=== PATIENT | male | born 1960 | race Caucasian/White ===

== ENCOUNTER 2016-11-20 13:00 | Emergency (ER) | payer OTHER ==
[~2016-11-20] VITALS: Ht 160 cm; Wt 155.0 kg
[~2016-11-20 13:00] MED LIST: /AUGM875TA OR; ACET65TA OR; ASPI81TA3 OR; BACT800T OR; CLIN300C OR; COLA100C2 OR; GLUC1000 PO; LISI2.5T PO; NAPR250T OR; PERC7.5T8 OR; SENN8.6T14 OR; ZOCO40TA OR
[2016-11-20] MEDS ORDERED: FURO20TA2 PO (13:18)
[2016-11-20] MEDS ORDERED: INVO300T PO (13:18)
[2016-11-20] MEDS ORDERED: PROZ20CA11 PO (13:18)
[2016-11-20 15:00] LABS: BASO # 0.1 10^3/uL (0.0-0.2); BASO % 0.7 % (0.0-1.0); EOS # 0.3 10^3/uL (0.0-0.50); EOS % 2.9 % (0.0-3.0); IMMATURE GRANULOCYTE % 0.6 % (0-0); LYMPH # 1.3 10^3/uL (1.5-4.5); LYMPH % 11.1 % (24.0-44.0); MEAN CORPUSCULAR HEMOGLOBIN 28.7 pg (27.0-33.0); MEAN CORPUSCULAR HGB CONC 32.8 g/dl (32.0-36.5); MEAN CORPUSCULAR VOLUME 87.6 fl (80.0-96.0); MONO # 0.9 10^3/uL (0.0-0.8); MONO % 7.4 % (0.0-5.0); NEUTROPHILS # 8.9 10^3/uL (1.8-7.7); NEUTROPHILS % 77.3 % (36.0-66.0); PLATELET COUNT, AUTOMATED 221 10^3/uL (150-450); RED CELL DISTRIBUTION WIDTH 13.6 % (11.5-14.5); WHITE BLOOD COUNT 11.5 10^3/uL (4.0-10.0)
[2016-11-20 15:03] LABS: ADD MORPHOLOGY? NO
[2016-11-20 15:15] LABS: ALBUMIN 3.4 GM/DL (3.2-5.2); ALBUMIN/GLOBULIN RATIO 0.79 (1.00-1.93); ALKALINE PHOSPHATASE 36 U/L (45-117); ALT/SGPT 23 U/L (12-78); ANION GAP 9 MEQ/L (8-16); AST/SGOT 15 U/L (15-37); BILIRUBIN,TOTAL 0.7 MG/DL (0.2-1.0); BLOOD UREA NITROGEN 16 MG/DL (7-18); CALCIUM LEVEL 8.6 MG/DL (8.5-10.1); CARBON DIOXIDE LEVEL 22 MEQ/L (21-32); CHLORIDE LEVEL 107 MEQ/L (98-107); CREATININE FOR GFR 0.62 MG/DL (0.70-1.30); GLOMERULAR FILTRATION RATE > 60.0 (>56); GLUCOSE, FASTING 173 MG/DL (70-105); POTASSIUM SERUM 4.2 MEQ/L (3.5-5.1); SODIUM LEVEL 138 MEQ/L (136-145); T UPTAKE 32 % (33-40); THYROXINE (T4) 10.1 UG/DL (4.5-12.0); TOTAL PROTEIN 7.7 GM/DL (6.4-8.2)
[2016-11-20 16:25] VITALS: BP 142/85
== END 2016-11-20 16:28 | disposition home or self-care (01) ==
LOC: M ED 13:00
DX: F33.1 Major depressive disorder, recurrent, moderate (principal); F43.20 Adjustment disorder, unspecified; E11.9 Type 2 diabetes mellitus without complications; I10 Essential (primary) hypertension; E78.00 Pure hypercholesterolemia, unspecified; Z79.899 Other long term (current) drug therapy; Z98.2 Presence of cerebrospinal fluid drainage device; Z79.84 Long term (current) use of oral hypoglycemic drugs

== ENCOUNTER → 2017-01-26 | Outpatient (REF) | payer OTHER ==
[~2017-01-26] MED LIST changes: +FURO20TA2 PO; +INVO300T PO; +PROZ20CA11 PO
[2017-01-26 18:33] LABS: MEAN CORPUSCULAR HEMOGLOBIN 29.1 pg (27.0-33.0); MEAN CORPUSCULAR HGB CONC 32.5 g/dl (32.0-36.5); MEAN CORPUSCULAR VOLUME 89.3 fl (80.0-96.0); PLATELET COUNT, AUTOMATED 225 10^3/uL (150-450); RED CELL DISTRIBUTION WIDTH 13.4 % (11.5-14.5); WHITE BLOOD COUNT 9.6 10^3/uL (4.0-10.0)
[2017-01-26 18:49] LABS: ALBUMIN 3.4 GM/DL (3.2-5.2); ALBUMIN/GLOBULIN RATIO 0.81 (1.00-1.93); ALKALINE PHOSPHATASE 32 U/L (45-117); ALT/SGPT 18 U/L (12-78); ANION GAP 7 MEQ/L (8-16); AST/SGOT 7 U/L (7-37); BILIRUBIN,TOTAL 0.8 MG/DL (0.2-1.0); BLOOD UREA NITROGEN 19 MG/DL (7-18); CALCIUM LEVEL 8.5 MG/DL (8.5-10.1); CARBON DIOXIDE LEVEL 26 MEQ/L (21-32); CHLORIDE LEVEL 104 MEQ/L (98-107); CHOLESTEROL LEVEL 141 MG/DL (<200); CREATININE FOR GFR 0.63 MG/DL (0.70-1.30); GLOMERULAR FILTRATION RATE > 60.0 (>56); GLUCOSE, FASTING 193 MG/DL (70-105); POTASSIUM SERUM 4.3 MEQ/L (3.5-5.1); SODIUM LEVEL 137 MEQ/L (136-145); TOTAL PROTEIN 7.6 GM/DL (6.4-8.2); TRIGLYCERIDES LEVEL 80 MG/DL (<150)
== END ==
LOC: M SFHCCLAY 09:21
PROVIDERS: ATTEND Nurse Practitioner Family
DX: E55.9 Vitamin D deficiency, unspecified (principal); I10 Essential (primary) hypertension; E11.8 Type 2 diabetes mellitus with unspecified complications

== ENCOUNTER → 2017-04-20 | Outpatient (REF) | payer OTHER ==
[2017-04-21 12:09] LABS: ESTIMATED AVERAGE GLUCOSE 212 MG/DL (60-110)
[2017-04-21 12:15] LABS: TOTAL 25(OH) VITAMIN D 15.1 NG/ML (30.0-100.0)
== END ==
LOC: M SFHCCLAY 14:39
DX: E11.8 Type 2 diabetes mellitus with unspecified complications (principal); E55.9 Vitamin D deficiency, unspecified

== ENCOUNTER → 2019-02-09 | Outpatient (REF) | payer OTHER ==
[2019-02-09 16:47] LABS: BASO # 0.1 10^3/uL (0.0-0.2); BASO % 0.7 % (0.0-1.0); EOS # 0.4 10^3/uL (0.0-0.5); EOS % 4.7 % (0.0-3.0); HEMATOCRIT 44.4 % (42.0-52.0); HEMOGLOBIN 14.6 g/dl (13.5-17.5); MEAN CORPUSCULAR HEMOGLOBIN 29.5 pg (27.0-33.0); MEAN CORPUSCULAR HGB CONC 32.9 g/dl (32.0-36.5); MEAN CORPUSCULAR VOLUME 89.7 fl (80.0-96.0); MONO # 0.7 10^3/uL (0.0-0.8); MONO % 8.1 % (0.0-5.0); NEUTROPHILS # 5.4 10^3/uL (1.5-8.5); NEUTROPHILS % 62.8 % (36.0-66.0); PLATELET COUNT, AUTOMATED 229 10^3/uL (150-450); RED BLOOD COUNT 4.95 10^6/uL (4.30-6.10); WHITE BLOOD COUNT 8.7 10^3/uL (4.0-10.0)
[2019-02-09 16:56] LABS: ALBUMIN 3.5 GM/DL (3.2-5.2); ALT/SGPT 21 U/L (12-78); BILIRUBIN,TOTAL 0.6 MG/DL (0.2-1.0); BLOOD UREA NITROGEN 14 MG/DL (7-18); CALCIUM LEVEL 8.9 MG/DL (8.5-10.1); CARBON DIOXIDE LEVEL 30 MEQ/L (21-32); CHLORIDE LEVEL 103 MEQ/L (98-107); CHOLESTEROL LEVEL 135 MG/DL (<200); CHOLESTEROL RISK RATIO 3.292 (<5); CREATININE FOR GFR 0.71 MG/DL (0.70-1.30); GLOMERULAR FILTRATION RATE > 60.0 (>56); GLUCOSE, FASTING 319 MG/DL (70-100); HDL CHOLESTEROL 41 MG/DL (>40); LDL CHOLESTEROL 76 MG/DL (<100); NON-HDL-C 94 MG/DL; POTASSIUM SERUM 4.5 MEQ/L (3.5-5.1); SODIUM LEVEL 136 MEQ/L (136-145); TOTAL PROTEIN 7.3 GM/DL (6.4-8.2); TRIGLYCERIDES LEVEL 88 MG/DL (<150)
[2019-02-09 17:20] LABS: CREATININE, URINE 44.5 MG/DL; MALB URINE SIEMENS 7.9 MG/L; MAU/CREAT RATIO 17.7 MCG/MG (0.0-30.0)
== END ==
LOC: M SFHCLERA 10:12
PROVIDERS: ATTEND Family Medicine
DX: E11.9 Type 2 diabetes mellitus without complications (principal)

== ENCOUNTER → 2019-04-25 | Outpatient (REF) | payer OTHER ==
[2019-04-25 18:20] LABS: CHOLESTEROL RISK RATIO 3.1 (<5)
== END ==
LOC: M SFHCCLAY 13:26
PROVIDERS: ATTEND Family Medicine
DX: E11.8 Type 2 diabetes mellitus with unspecified complications (principal)

== ENCOUNTER → 2020-01-17 | Outpatient (REF) | payer OTHER ==
[2020-01-17 16:29] LABS: HEMOGLOBIN A1c 5.2 %
[2020-01-17 16:39] LABS: CREATININE, URINE 27.8 MG/DL; CREATININE,RANDOM URINE 27.8 MG/DL; MALB URINE SIEMENS < 5.0 MG/L; MAU/CREAT RATIO 17.9 MCG/MG (0.0-30.0)
== END ==
LOC: M SFHCLERA 14:08
PROVIDERS: ATTEND Student in an Organized Health Care Education/Training Program
DX: E11.9 Type 2 diabetes mellitus without complications (principal)

== ENCOUNTER → 2020-03-13 | Outpatient (CLI) | payer OTHER ==
[~2020-03-13] MED LIST changes: +ASPI81TA26 PO; +LISI-898 PO; +METF10004 PO; +SERT-138 PO; +TRUL0.5I SC
--- NOTE | 2020-03-13 11:41 | REP ---
INDICATION: VENOUS INSUFFICIENCY, VARICOSE VEINS COMPARISON: None. TECHNIQUE: Real time compression and duplex Doppler interrogation of the bilateral lower extremity deep venous system is performed. FINDINGS: Bilaterally, the common femoral, superficial femoral and popliteal veins are fully compressible with transducer pressure and demonstrate normal spontaneous and phasic flow, without evidence of deep venous thrombosis. Evaluation for venous reflux is performed. There is reflux in the right common femoral vein only in the standing position with duration of 2 seconds. There is no reflux in the superficial femoral or popliteal veins. There is an anterior greater saphenous vein present with no reflux. There is no reflux in any portion of the greater saphenous vein which measures 5 mm at the saphenofemoral junction and 7 mm more distally. There are multiple collateral venous structures communicating with the greater saphenous vein. There is reflux in the lesser saphenous vein with duration of 5 seconds only in the standing position, diameter 5 mm. There is minimal reflux in the left common femoral vein both with the bed tilted and in the standing position, duration 1.9 seconds. There is an anterior accessory greater saphenous vein present without reflux. There is reflux in the greater saphenous vein at the saphenofemoral junction with a duration of 1.8 seconds with the bed tilted, AP diameter 12 mm. There is no reflux in the more distal aspect of the greater saphenous vein which measures 3 mm. There is no reflux in the superficial femoral or popliteal veins. There is no reflux in the lesser saphenous vein which measures 4 mm. Collateral venous structures are seen communicating with the greater saphenous vein. IMPRESSION: No evidence of deep venous thrombosis of the bilateral lower extremity femoral popliteal venous system. Bilateral venous reflux as discussed in detail above. <Electronically signed by Ricki Santos > 03/13/20 [id number]
== END ==
LOC: M RAD 10:11
PROVIDERS: ATTEND Physician Assistant
DX: I87.2 Venous insufficiency (chronic) (peripheral) (principal); I83.813 Varicose veins of bilateral lower extremities with pain; I83.891 Varicose veins of right lower extremity with other complications

== ENCOUNTER → 2020-03-18 | Outpatient (CLI) | payer OTHER | LOC: M LABSMTC 09:34 | PROVIDERS: ATTEND Anesthesiology | DX: Z01.812 Encounter for preprocedural laboratory examination (principal); Z20.822 Contact with and (suspected) exposure to COVID-19 ==

== ENCOUNTER 2020-03-23 06:48 | Day surgery (SDC) | payer OTHER ==
[~2020-03-23] VITALS: Ht 160 cm; Wt 100.2 kg
[~2020-03-23 06:48] MED LIST changes: +LISI-542 PO; -LISI-898 PO; +NS 1,000 ML IV ONE
--- OUTSIDE RECORDS SUMMARY | 2020-03-23 06:52 | CCD | Continuity of Care Document ---
Author Author [facility] Organization Unknown Address [address], [address] [place] [address] Phone [phone] Care Team Providers Care District Commercial Superintendent Name Role Phone Elizabeth Jarvis M.D. AUTM [phone] AUTM Unavailable Problems Active Problems Provider Date Essential hypertension Khanh Estrada, Onset: 2019 Social History Type Date Description Comments Sex Unknown ETOH Use 1 A Month Tobacco Use Start: Unknown Denies Smoking Recreational Drug Use Denies Drug Use Smoking Status Reviewed: 02/21/20 Denies Smoking Allergies, Adverse Reactions, Alerts Description No Known Drug Allergies Medications Active Medications SIG Qnty Indications Ordering Provide r Date Suprep Bowel Prep Kit 17.5-3.13-1.6GM/177ML Solution take per doctor's bowel prep instructions. 354ml Z12.1 1 Waldo Hernandez MD 03/07/[address] take 4 tabs by mouth prior to procedure per instructions. 4tabs Z12.11 Waldo Hernandez MD 03/07/2020 Metformin HCL 1000mg Tablets bid Unknown Lisinopril 5mg Tablets once a day Unknown Sertraline HCL 100mg Tablets 1 qd Unknown Aspirin [address] take 1 tab by mouth daily Unknown Trulicity 1.5mg/0.5ML Solution Pen -Inject Once A Week Unknown Immunizations Description No Information Available Vital Signs Date Vital Result Comment 03/07/2020 10:16am BP Systolic 120 mmHg BP Diastolic 68 mmHg Height 63 inches 5'3" Weight 227.00 lb BMI (Body Mass Index) 40.2 kg/m2 [place] Body Weight 124 lb Weight 102.967 kg BSA (Body Surface Area) 2.04 m2 02/21/2020 11:48am BP Systolic 122 mmHg BP Diastolic 70 mmHg Height 63 inches 5'3" Weight 223.00 lb BMI (Body Mass Index) 39.5 kg/m2 [place] Body Weight 124 lb Weight 101.153 kg BSA (Body Surface Area) 2.03 m2 Results Description No Information Available Procedures Description No Information Available Medical Devices Description No Information Available Encounters Type Date Location Provider Dx Diagnosis Office Visit 02/21/2020 11:30a [facility] NIRMALA Haile I87.2 Venous insufficiency (chronic) (peripher al) I83.813 Varicose veins of bilateral lower extremities with pain I83.891 Varicose veins of r low extr em with other complications Assessments Date Code Description Provider 03/07/2020 Z12.11 Encounter for screening for beata gnant neoplasm of colon YUN Brito 02/21/2020 I87.2 Venous insufficiency (chronic) ( peripheral) NIRMALA Gorman 02/21/2020 I83.813 Varicose veins of bilateral lowe r extremities with pain NIRMALA Gorman 02/21/2020 I83.891 Varicose veins of ri ght lower extremity with other complications NIRMALA Gorman Plan of Treatment Future Appointment(s):* 03/27/2020 9:00 am - NIRMALA Gorman at [facility] 03/07/2020 - YUN Brito* Z12.11 Encounter for screening for malignant neoplasm of colon * * New Medication:* Suprep Bowel Prep Kit 17.5-3.13-1.6 GM/177ML * Dulcolax 5 mg * New Orders:* Colonoscopy, Ordered: 03/07/20 * Comments:* Will arrange for colonoscopy. Reviewed risks and benefits of the procedure, as well as other options, with the patient. Bowel prep procedure was discussed with patient, as well as risks and side effects associated with the bowel prep. Patient verbalized understanding of all of the above and is in agreement to proceed. Patient will seek medical attention for any acute changes. Will monitor. * Follow up:* As scheduled, sooner if needed. Functional Status Description No Information Available Mental Status Description No Information Available Referrals Refer to Reason for Referral Status Appt Date Kinza Syed P.A. VENOUS STATSIS BILATERAL LOWER EXTREMIT IES Created 02/21/2020 [address], [address] [place] [address] [place] [address] [phone] Connor Domínguez M.D. colo screening Created 03/07 [address], [address] [place] [address] [phone]
--- OUTSIDE RECORDS SUMMARY | 2020-03-23 06:52 | CCD ---
Author Author [facility] Organization [facility] Address Unknown Phone Unavailable Care Team Providers Care Continuous Towel Roller Name Role Phone Elizabeth Jarvis Unavailable PROBLEMS Type Condition ICD9-CM Code EGR05-SU Code Onset Dates Condition S tatus SNOMED Code Notes Problem Vitamin D deficiency E55.9 Active 45185033 Problem Venous (peripheral) insufficiency I87.2 Active 95790334 Problem Morbid (severe) obesity due to excess calories E66 .01 Active 611921009 Problem Bilateral lower extremity edema R60.0 Active 211341009 Problem Body mass index (BMI) of 50-59.9 in adult Z68.43 Active 137519539 Problem Type 2 diabetes mellitus with unspecified complications E11.8 Active 64401010 Problem Type 2 diabetes mellitus wit hout complication, without long-term current use of insulin E11.9 Active 935290429 Problem Obesity, morbid, BMI 50 or higher E66.01 Active 457310592 Problem Depressive disorder, not elsewhere classified F32.9 Active 39133219 Problem Type 2 diabetes mellitus wit hout complication, 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.9 Active 773341756 Problem Essential hypertension I10 Active 63928819 Problem Varicose veins of both legs with edema I83.893 A ctive 38698998 Problem Adjustment disorder with depressed mood F43.21 Active 37770850 Problem Major depressive disorder, recurrent, moderate F33 .1 Active 811015455 Problem Obesity, morbid, BMI 40.0-49.9 E66.01 Active 2 26890267 ALLERGIES No Known Allergies ENCOUNTERS from 1960 to 2020-02-07 Encounter Location Date Provider Diagnosis [facility] [id number] [place] [id number] 02 Jan, Elizabeth Jarvis Vascular disorder of lower extremity I99 .9 IMMUNIZATIONS Vaccine Route Administration Date Status Influenza (18 yrs & older) Flublok IM Intramuscular Dec 21, 2019 Administered Influenza (18 yrs & older) Flublok IM Intramuscular Feb 09, 2019 Administered Influenza (6mo & up) Fluzone IM Intramuscular Jan 23, 2016 Ad ministered Influenza (6mo & up) Fluzone IM Intramuscular Dec 12, 2010 Ad ministered SOCIAL HISTORY Tobacco Use: Social History Observation Description Date Details (start date - stop date) Never Smoker Sex Assigned At : Social History Observation Description Sex Assigned At Unknown Audit Question Answer Notes Total Score: 1 Interpretation: Alcohol Education Language: Question Answer Notes Languages spoken: [place]i Caodaism: Question Answer Notes Caodaism No episcopal beliefs that would impact health care. Sexual Hx: Question Answer Notes Had sex in the last 12 months (vaginal, oral, or anal)? No Have you ever had an STD? No Drug and Alcohol Question Answer Notes Total Score: 0 Interpretation: No problems reported Tobacco Use: Question Answer Notes Are you a: never smoker REASON FOR REFERRAL No Information VITAL SIGNS No information MEDICATIONS Medication SIG (Take, Route, Frequency, Duration) Notes Start Da te End Date Status Metformin HCl 1000 MG 1 tablet with a meal Orally bid for 90 day (s) Jan, Active Aspirin 81 MG 1 tablet Orally Once a day Active Trulicity 1.5 MG/0.5ML 1 injection Subcutaneous weekly for 90 da y(s) Jan, Active Zoloft 100 MG 1 tablet Orally Once a day for 90 day(s) Apr, Active Lisinopril 5 MG 1 tablet Orally Once a day for 90 day(s) 1 Jan, Active PROCEDURES No Information RESULTS No Results REASON FOR VISIT Referral/Labs MEDICAL (GENERAL) HISTORY Type Description Date Medical History DM 2, A1C goal; 7% Medical History DIVERTICULOSIS Medical History HTN, goal 140/90 Medical History Dysthymia Surgical History Tonsilectomy as a child Surgical History COLONOSCOPY 09/03 Hospitalization History cellulitis/dm 10/03 Hospitalization History "blood infection" doesn't remember when Goals Section No Information Health Concerns No Information MEDICAL EQUIPMENT No Information MENTAL STATUS No Information FUNCTIONAL STATUS No Information ASSESSMENTS Encounter Date Diagnosis Assessment Notes Treatment Notes Treatm ent Clinical Notes Jan, Vascular disorder of lower extremity (ICD-10 - I 99.9) please attach note from 12/21/2019. thanks PLAN OF TREATMENT Treatment Notes Assessment Notes Clinical Notes Vascular disorder of lower extremity ple ase attach note from 12/21/2019. thanks Insurance Providers Payer Name Payer Address Payer Phone Insured Name Patient Relati onship to Insured Coverage Start Date Coverage End Date [facility] [address] [facility] [id number] [employer] self 2016
--- OUTSIDE RECORDS SUMMARY | 2020-03-23 06:52 | CCD ---
Author Author [facility] Organization [facility] Address Unknown Phone Unavailable Care Team Providers Care Bark Fitter Name Role Phone Syed, L Kinza RPA Unavailable Unavailable Syed, L Kinza RPA Unavailable Unavailable Syed, L Kinza RPA Unavailable Unavailable Syed, L Kinza RPA Unavailable Unavailable Syed, L Kinza RPA Unavailable Unavailable Syed, L Kinza RPA Unavailable Unavailable Syed, L Kinza RPA Unavailable Unavailable Syed, L Kinza RPA Unavailable Unavailable Syed, L Kinza RPA Unavailable Unavailable Syed, L Kinza RPA Unavailable Unavailable Syed, L Kinza RPA Unavailable Unavailable Syed, L Kinza RPA Unavailable Unavailable Syed, L Kinza RPA Unavailable Unavailable Syed, L Kinza RPA Unavailable Unavailable Syed, L Kinza RPA Unavailable Unavailable Syed, L Kinza RPA Unavailable Unavailable Syed, L Kinza RPA Unavailable Unavailable Syed, L Kinza RPA Unavailable Unavailable Syed, L Kinza RPA Unavailable Unavailable Syed, L Kinza RPA Unavailable Unavailable Syed, L Kinza RPA Unavailable Unavailable Syed, L Kinza RPA Unavailable Unavailable Syed, L Kinza RPA Unavailable Unavailable Syed, L Kinza RPA Unavailable Unavailable Syed, L Kinza RPA Unavailable Unavailable Syed, L Kinza RPA Unavailable Unavailable Syed, L Kinza RPA Unavailable Unavailable Syed, L Kinza RPA Unavailable Unavailable Syed, L Kinza RPA Unavailable Unavailable Syed, L Kinza RPA Unavailable Unavailable Syed, L Kinza RPA Unavailable Unavailable Syed, L Kinza RPA Unavailable Unavailable Re-disclosure Warning The records that you are about to access may contain information from federally-assisted alcohol or drug abuse programs. If such information is present, then the following federally mandated warning applies: This information has been disclosed to you from records protected by federal confidentiality rules (42 CFR part 2). The federal rules prohibit you from making any further disclosure of this information unless further disclosure is expressly permitted by the written consent of the person to whom it pertains or as otherwise permitted by 42 CFR part 2. A general authorization for the release of medical or other information is NOT sufficient for this purpose. The Federal rules restrict any use of the information to criminally investigate or prosecute any alcohol or drug abuse patient.The records that you are about to access may contain highly sensitive health information, the redisclosure of which is protected by Article 27-F of the [facility] Public Health law. If you continue you may have access to information: Regarding HIV / AIDS; Provided by facilities licensed or operated by the [facility] Office of Mental Health; or Provided by the [facility] Office for People With Developmental Disabilities. If such information is present, then the following [facility] mandated warning applies: This information has been disclosed to you from confidential records which are protected by state law. State law prohibits you from making any further disclosure of this information without the specific written consent of the person to whom it pertains, or as otherwise permitted by law. Any unauthorized further disclosure in violation of state law may result in a fine or mcc sentence or both. A general authorization for the release of medical or other information is NOT sufficient authorization for further disc losure. Encounters Encounter Providers Location Date Indications Data Source(s ) Outpatient Attender: Kinza Davis/Urmila/Suyapa paredes 02/21/2020 10:30:00 AM EST MEDENT ([facility] [place] [address] [facility] [address] 02/06/2020 12:00:00 AM EST eCW1 ([facility]) Outpatient [address] [facility] [place] [address] 12/21/2019 12:00:00 AM EDT eCW1 ([facility]) Unknown [address] [facility] [address] 09/01/2019 12:00:00 AM EDT eCW1 ([facility]) [facility] [place] [address] [facility] [place] [address] 06/23/2019 12:00:00 AM EDT eCW1 ([facility]) [facility] [place] [address] [facility] [place] [address] 06/02/2019 12:00:00 AM EDT eCW1 ([facility]) [facility] [address] [facility] [place] [address] 05/31/2019 12:00:00 AM EDT eCW1 ([facility]) [facility] [address] [place] [address] 04/25/2019 12:00:00 AM EST eCW1 ([facility]) [facility] [address] [place] [address] 03/28/2019 12:00:00 AM EST eCW1 ([facility]) [facility] [address] [facility] [place] [address] 03/28/2019 12:00:00 AM EST eCW1 ([facility]) [facility] [address] [facility] [place] [address] 03/22/2019 12:00:00 AM EST eCW1 ([facility]) [facility] [address] [place] [address] 03/15/2019 12:00:00 AM EST eCW1 ([facility]) [facility] [address] [place] [address] 02/14/2019 12:00:00 AM EST eCW1 ([facility]) [facility] [address] [facility] [address] 02/14/2019 12:00:00 AM EST eCW1 ([facility]) [facility] [address] [facility] [address] 02/09/2019 12:00:00 AM EST eCW1 ([facility]) [facility] [address] [facility] [address] 02/09/2019 12:00:00 AM EST eCW1 ([facility]) Immunizations Vaccine Date Status Description Data Source(s) influenza, recombinant, quadrIvalent,injectable, prese rvative free 12/21/2019 10:51:00 AM EDT completed eCW1 ([facility]) influenza, recombinant, quadrIvalent,injectable, prese rvative free 12/21/2019 10:51:00 AM EDT completed eCW1 ([facility]) influenza, recombinant, quadrIvalent,injectable, prese rvative free 12/21/2019 10:51:00 AM EDT completed eCW1 ([facility]) influenza, recombinant, quadrIvalent,injectable, prese rvative free 02/09/2019 10:50:00 AM EST completed eCW1 ([facility]) influenza, recombinant, quadrIvalent,injectable, prese rvative free 02/09/2019 10:50:00 AM EST completed eCW1 ([facility]) influenza, recombinant, quadrIvalent,injectable, prese rvative free 02/09/2019 10:50:00 AM EST completed eCW1 ([facility]) influenza, recombinant, quadrIvalent,injectable, prese rvative free 02/09/2019 10:50:00 AM EST completed eCW1 ([facility]) Medications Medication Brand Name Start Date Product Form Dose Route Admi nistrative Instructions Pharmacy Instructions Status Indications Reaction Description Data Source(s) Suprep Bowel Prep Kit Suprep Bowel Prep Kit 03/07/2020 12:00:00 AM EST active MEDENT ([facility], ) Bisacodyl 5 MG Delayed Release Oral Tablet [Dulcolax] Dulcol ax 03/07/2020 12:00:00 AM EST ORAL active M EDENT ([facility], ) 0.5 ML dulaglutide 3 MG/ML Auto-Injector [Trulicity] T rulicity 1.5 MG/0.5ML Trulicity 1.5 MG/0.5ML 02/14/2019 12:00:00 AM EST active Trulicity 1.5 MG/0.5ML eCW1 ([facility]) 0.5 ML dulaglutide 3 MG/ML Auto-Injector [Trulicity] T rulicity 1.5 MG/0.5ML Trulicity 1.5 MG/0.5ML 02/14/2019 12:00:00 AM EST active 1 injection eCW1 ([facility]) 0.5 ML dulaglutide 3 MG/ML Auto-Injector [Trulicity] T rulicity 1.5 MG/0.5ML Trulicity 1.5 MG/0.5ML 02/14/2019 12:00:00 AM EST active 1 injection eCW1 ([facility]) 0.5 ML dulaglutide 3 MG/ML Auto-Injector [Trulicity] T rulicity 1.5 MG/0.5ML Trulicity 1.5 MG/0.5ML 02/14/2019 12:00:00 AM EST active 1 injection eCW1 ([facility]) 0.5 ML dulaglutide 1.5 MG/ML Auto-Injector [Trulicity] Trulicity 0.75 MG/0.5ML Trulicity 0.75 MG/0.5ML 02/14/2019 12:00:00 AM EST active 1 injection eCW1 ([facility]) 0.5 ML dulaglutide 3 MG/ML Auto-Injector [Trulicity] T rulicity 1.5 MG/0.5ML Trulicity 1.5 MG/0.5ML 02/14/2019 12:00:00 AM EST active Trulicity 1.5 MG/0.5ML eCW1 ([facility]) 0.5 ML dulaglutide 1.5 MG/ML Auto-Injector [Trulicity] Trulicity 0.75 MG/0.5ML Trulicity 0.75 MG/0.5ML 02/14/2019 12:00:00 AM EST suspended 1 injection eCW1 ([facility]) 0.5 ML dulaglutide 3 MG/ML Auto-Injector [Trulicity] T rulicity 1.5 MG/0.5ML Trulicity 1.5 MG/0.5ML 02/14/2019 12:00:00 AM EST active Trulicity 1.5 MG/0.5ML eCW1 ([facility]) 0.5 ML dulaglutide 3 MG/ML Auto-Injector [Trulicity] T rulicity 1.5 MG/0.5ML Trulicity 1.5 MG/0.5ML 02/14/2019 12:00:00 AM EST active 1 injection eCW1 ([facility]) Lisinopril 5 MG Oral Tablet Lisinopril 5 MG 02/09/2019 12:00:00 AM EST active 1 tablet eCW1 ([facility]) Metformin hydrochloride 1000 MG Oral Tablet Metformin HCl 1000 MG Metformin HCl 1000 MG 02/09/2019 12:00:00 AM EST active 1 tablet with a meal eCW1 ([facility]) Metformin hydrochloride 1000 MG Oral Tablet Metformin HCl 1000 MG Metformin HCl 1000 MG 02/09/2019 12:00:00 AM EST 1.0 {tablet_with_a_meal} active Metformin HCl 1000 MG eCW1 ([facility]) Metformin hydrochloride 1000 MG Oral Tablet Metformin HCl 1000 MG Metformin HCl 1000 MG 02/09/2019 12:00:00 AM EST active 1 tablet with a meal eCW1 ([facility]) Lisinopril 5 MG Oral Tablet Lisinopril 5 MG 02/09/2019 12:00:00 AM EST 1.0 {tablet} active Lisinopril 5 MG eCW1 ([facility]) Metformin hydrochloride 1000 MG Oral Tablet Metformin HCl 1000 MG Metformin HCl 1000 MG 02/09/2019 12:00:00 AM EST 1.0 {tablet_with_a_meal} active Metformin HCl 1000 MG eCW1 ([facility]) Lisinopril 5 MG Oral Tablet Lisinopril 5 MG 02/09/2019 12:00:00 AM EST active 1 tablet eCW1 ([facility]) Lisinopril 5 MG Oral Tablet Lisinopril 5 MG 02/09/2019 12:00:00 AM EST 1.0 {tablet} active Lisinopril 5 MG eCW1 ([facility]) Lisinopril 5 MG Oral Tablet Lisinopril 5 MG 02/09/2019 12:00:00 AM EST active 1 tablet eCW1 ([facility]) Metformin hydrochloride 1000 MG Oral Tablet Metformin HCl 1000 MG Metformin HCl 1000 MG 02/09/2019 12:00:00 AM EST 1.0 {tablet_with_a_meal} active Metformin HCl 1000 MG eCW1 ([facility]) Lisinopril 5 MG Oral Tablet Lisinopril 5 MG 02/09/2019 12:00:00 AM EST active 1 tablet eCW1 ([facility]) Metformin hydrochloride 1000 MG Oral Tablet Metformin HCl 1000 MG Metformin HCl 1000 MG 02/09/2019 12:00:00 AM EST active 1 tablet with a meal eCW1 ([facility]) Lisinopril 5 MG Oral Tablet Lisinopril 5 MG 02/09/2019 12:00:00 AM EST active 1 tablet eCW1 ([facility]) Metformin hydrochloride 1000 MG Oral Tablet Metformin HCl 1000 MG Metformin HCl 1000 MG 02/09/2019 12:00:00 AM EST active 1 tablet with a meal eCW1 ([facility]) Lisinopril 5 MG Oral Tablet Lisinopril 5 MG 02/09/2019 12:00:00 AM EST 1.0 {tablet} active Lisinopril 5 MG eCW1 ([facility]) Metformin hydrochloride 1000 MG Oral Tablet Metformin HCl 1000 MG Metformin HCl 1000 MG 02/09/2019 12:00:00 AM EST active 1 tablet with a meal eCW1 ([facility]) Insurance Providers Payer name Policy type / Coverage type Policy ID Covered alliance party ID Covered alliance party's relationship to arriola Policy Arriola Plan Information [facility] [id number] [facility] [id number] [employer] UNAVAILABLE S UNAVAILABLE [facility] [id number] S U [id number] [facility] LTV STEEL [id number] S [id number] [facility] [id number] SP U [id number] [facility] [id number] SP [id number] [facility] [id number] S [id number] Problems, Conditions, and Diagnoses Code Display Name Description Problem Type Effective Dates Data Source(s) E11.9 [id number] Type 2 diabetes laurence itus without complication, unspecified whether skilled nursing insulin use Problem 12/21/2019 12:00:00 AM EDT eCW 1 ([facility]) E66.01 [id number] Obesity, morbid, BMI 40.0-49.9 Problem 03/29/2019 12:00:00 AM EST eCW1 ([facility]) E66.01 [id number] Obesity, morbid, BMI 50 or higher Problem 03/29/2019 12:00:00 AM EST eCW1 ([facility]) E66.01 [id number] Obesity, morbid, BMI 40.0-49.9 Problem 03/29/2019 12:00:00 AM EST eCW1 ([facility]) [id number] Essential hypertension Essential hypertension Problem 03/07/2019 12:00:00 AM EST MEDENT ([facility], ) F33.1 [id number] Major depressive disorder, recurrent, mod erate Problem 02/14/2019 12:00:00 AM EST eCW1 ([facility]) F33.1 [id number] Major depressive disorder, recurrent, mod erate Problem 02/14/2019 12:00:00 AM EST eCW1 ([facility]) F43.21 [id number] Adjustment disorder with depressed mood P natasham 02/09/2019 12:00:00 AM EST eCW1 ([facility]) I83.893 [id number] Varicose veins of both legs with edema Pr oblem 02/09/2019 12:00:00 AM EST eCW1 ([facility]) E11.9 [id number] Type 2 diabetes laurence itus without complication, without long-term current use of insulin Problem 02/09/2019 12:00:00 AM EST eCW1 ([facility]) F43.21 [id number] Adjustment disorder with depressed mood Dexter vail 02/09/2019 12:00:00 AM EST eCW1 ([facility]) I83.893 27483785 Varicose veins of both legs with edema Pr oblem 02/09/2019 12:00:00 AM EST eCW1 ([facility]) E11.9 [id number] Type 2 diabetes laurence itus without complication, without long-term current use of insulin Problem 02/09/2019 12:00:00 AM EST eCW1 ([facility]) Surgeries/Procedures Procedure Description Date Indications Data Source(s) Immunization: Flublok Quadrivalent (18 years & older) 0.5mL IM (Influenza) 12/21/2019 12:00:00 AM EDT eCW1 ([facility]) PHYSICIAN TELEPHONE EVALUATION 21-30 MIN 05/31/2019 12 :00:00 AM EDT eCW1 ([facility]) PSYTX W PT 45 MINUTES 03/28/2019 12:00:00 AM EST eCW1 ([facility]) EYE EXAM WITH PHOTOS 02/14/2019 12:00:00 AM EST eCW1 ([facility]) RIV4 VACC RECOMBINANT DNA IM 02/09/2019 12:00:00 AM ES T eCW1 ([facility]) IMMUNIZATION ADMIN 02/09/2019 12:00:00 AM EST eCW1 ([facility]) Results ID Date Data Source [id number] 03/18/2020 10:30:00 AM EST [facility] Name Value Range Interpretation Code Description Data Deneen rce(s) Supporting Document(s) SARS coronavirus 2 RNA Not Detected [facility] [place] This lab was ordered by [facility] and reported by [facility]. ID Date Data Source LIPID PANEL (CARDIAC RISK) 02/09/2019 12:00:00 AM EST eCW1 ( [facility]) Name Value Range Interpretation Code Description Data Deneen rce(s) Supporting Document(s) Triglyceride [Mass/volume] in Serum or Plasma by calculation 88 <150 TRIGLYCERIDES LEVEL eCW1 ([facility]) Cholesterol in HDL [Moles/volume] in Serum or Plasma 41 >40 HDL CHOLESTEROL eCW1 ([facility]) Cholesterol [Moles/volume] in Serum or Plasma 135 <200 CHOLESTEROL LEVEL eCW1 ([facility]) 94 NON-HDL-C eCW1 ([facility]) 3.292 <5 CHOLESTEROL RISK RATIO eCW1 ([facility]) Cholesterol in LDL [Mass/volume] in Serum or Plasma by calculation 76 <100 LDL CHOLESTEROL eCW1 ([facility]) ID Date Data Source TSH 02/09/2019 12:00:00 AM EST eCW1 ([facility]) Name Value Range Interpretation Code Description Data Deneen rce(s) Supporting Document(s) 3.490 0.358-3.740 THYROID STIMULATING HORM ONE eCW1 ([facility]) ID Date Data Source [id number] 02/09/2019 12:00:00 AM EST eCW1 ([facility]) Name Value Range Interpretation Code Description Data Deneen rce(s) Supporting Document(s) Microalbumin/Creatinine [Ratio] in Urine 17.7 0.0-30.0 ROXANNE/CREAT RATIO eCW1 ([facility]) Albumin/Creatinine [Mass Ratio] in Urine 7.9 MALB URINE SIEMENS eCW1 ([facility]) Microalbumin/Creatinine [Mass Ratio] in Urine 44.5 CREATININE, URINE eCW1 ([facility]) ID Date Data Source [id number] 02/09/2019 12:00:00 AM EST eCW1 ([facility]) Name Value Range Interpretation Code Description Data Deneen rce(s) Supporting Document(s) Hemoglobin A1c/Hemoglobin.total in Blood 11.0 HEMOGLOBIN A1c eCW1 ([facility]) ID Date Data Source Comprehensive Metabolic Profile (CMP) 02/09/2019 12:00:00 AM EST eCW1 ([facility]) Name Value Range Interpretation Code Description Data Deneen rce(s) Supporting Document(s) 319 70-100 GLUCOSE, FASTING eCW1 ([facility]) 0.71 0.70-1.30 CREATININE FOR GFR eCW1 ([facility]) 136 136-145 SODIUM LEVEL eCW1 ([facility]) 14 7-18 BLOOD UREA NITROGEN eCW1 ([facility]) > 60.0 >56 GLOMERULAR FILTRATION RATE eCW 1 ([facility]) 103 98-107 CHLORIDE LEVEL eCW1 ([facility]) 4.5 3.5-5.1 POTASSIUM SERUM eCW1 ([facility]) 30 21-32 CARBON DIOXIDE LEVEL eCW1 ([facility]) 8.9 8.5-10.1 CALCIUM LEVEL eCW1 ([facility]) 8 7-37 AST/SGOT eCW1 ([facility]) 7.3 6.4-8.2 TOTAL PROTEIN eCW1 ([facility]) 21 12-78 ALT/SGPT eCW1 ([facility]) 0.6 0.2-1.0 BILIRUBIN,TOTAL eCW1 ([facility]) 57 45-117 ALKALINE PHOSPHATASE eCW1 ([facility]) 0.92 1.00-1.93 ALBUMIN/GLOBULIN RATIO eCW1 ([facility]) 3.5 3.2-5.2 ALBUMIN eCW1 ([facility]) ID Date Data Source CBC with Differential 02/09/2019 12:00:00 AM EST eCW1 ([facility]) Name Value Range Interpretation Code Description Data Deneen rce(s) Supporting Document(s) 4.95 4.30-6.10 RED BLOOD COUNT eCW1 ([facility]) 8.7 4.0-10.0 WHITE BLOOD COUNT eCW1 ([facility]) 14.6 13.5-17.5 HEMOGLOBIN eCW1 ([facility]) 29.5 27.0-33.0 MEAN CORPUSCULAR HEMOGLOB IN eCW1 ([facility]) 32.9 32.0-36.5 MEAN CORPUSCULAR HGB CONC eCW1 ([facility]) 44.4 42.0-52.0 HEMATOCRIT eCW1 ([facility]) 89.7 80.0-96.0 MEAN CORPUSCULAR VOLUME e CW1 ([facility]) 8.1 0.0-5.0 MONO % eCW1 ([facility]) 13.2 11.5-14.5 RED CELL DISTRIBUTION WID TH eCW1 ([facility]) 62.8 36.0-66.0 NEUTROPHILS % eCW1 ([facility]) 229 150-450 PLATELET COUNT, AUTOMATED eCW1 ([facility]) 23.0 24.0-44.0 LYMPH % eCW1 ([facility]) 5.4 1.5-8.5 NEUTROPHILS # eCW1 ([facility]) 0.7 0.0-1.0 BASO % eCW1 ([facility]) 2.0 1.5-5.0 LYMPH # eCW1 ([facility]) 4.7 0.0-3.0 EOS % eCW1 ([facility]) 0.1 0.0-0.2 BASO # eCW1 ([facility]) 0.7 0.0-0.8 MONO # eCW1 ([facility]) 0.4 0.0-0.5 EOS # eCW1 ([facility]) Procedure Social History Code Duration Value Status Description Data Source(s ) Smoking 12/21/2019 12:00:00 AM EDT Never Smoker completed Never S moker eCW1 ([facility]) Smoking 12/21/2019 12:00:00 AM EDT Never Smoker completed Never S moker eCW1 ([facility]) Smoking 12/21/2019 12:00:00 AM EDT Never Smoker completed Never S moker eCW1 ([facility]) Vital Signs ID Date Data Source UNK Name Value Range Interpretation Code Description Data Source(s) Body surface area Derived from formula 2.04 m2 2.04 m2 MEDENT ([facility] ) Body weight 102.967 kg 102.967 kg MEDENT ([facility]) [place] body weight 124 [lb_av] 124 [lb_av] MEDEN T ([facility]) Body mass index (BMI) [Ratio] 40.2 kg/m2 40.2 k g/m2 [facility] ([facility]) Body weight 227.00 [lb_av] 227.00 [lb_av] MEDEN T ([facility]) Body height 63 [in_i] 63 [in_i] [facility] ([facility]) 5'3" Diastolic blood pressure 68 mm[Hg] 68 mm[Hg] [facility] ([facility]) Systolic blood pressure 120 mm[Hg] 120 mm[Hg] M [facility] ([facility]) Body surface area Derived from formula 2.03 m2 2.03 m2 [facility] ([facility]) Body weight 101.153 kg 101.153 kg [facility] ([facility]) [place] body weight 124 [lb_av] 124 [lb_av] MEDEN T ([facility]) Body mass index (BMI) [Ratio] 39.5 kg/m2 39.5 k g/m2 [facility] ([facility]) Body weight 223.00 [lb_av] 223.00 [lb_av] MEDEN T ([facility]) Body height 63 [in_i] 63 [in_i] [facility] ([facility]) 5'3" Diastolic blood pressure 70 mm[Hg] 70 mm[Hg] [facility] ([facility]) Systolic blood pressure 122 mm[Hg] 122 mm[Hg] [facility] Diastolic blood pressure 80 mm[Hg] 80 mm[Hg] eCW1 ([facility]) Systolic blood pressure 112 mm[Hg] 112 mm[Hg] e CW1 ([facility]) Body temperature 98.7 [degF] 98.7 [degF] eCW1 ( [facility]) Respiratory rate 16 /min 16 /min eCW1 ([facility]) Heart rate 78 /min 78 /min eCW1 ([facility]) Body mass index (BMI) [Ratio] 39.14 kg/m2 39.14 kg/m2 eCW1 ([facility]) Body height 63 [in_i] 63 [in_i] eCW1 ([facility]) Body weight 221 [lb_av] 221 [lb_av] eCW1 ([facility]) Diastolic blood pressure 74 mm[Hg] 74 mm[Hg] eCW1 ([facility]) Systolic blood pressure 136 mm[Hg] 136 mm[Hg] e CW1 ([facility]) Body temperature 98.1 [degF] 98.1 [degF] eCW1 ( [facility]) Respiratory rate 17 /min 17 /min eCW1 ([facility]) Heart rate 75 /min 75 /min eCW1 ([facility]) Body mass index (BMI) [Ratio] 46.09 kg/m2 46.09 kg/m2 eCW1 ([facility]) Body height 63 [in_us] 63 [in_us] eCW1 ([facility]) Body weight Measured 260.2 [lb_av] 260.2 [lb_av ] eCW1 ([facility]) Diastolic blood pressure 72 mm[Hg] 72 mm[Hg] eCW1 ([facility]) Systolic blood pressure 135 mm[Hg] 135 mm[Hg] e CW1 ([facility]) Body temperature 98.5 [degF] 98.5 [degF] eCW1 ( [facility]) Respiratory rate 18 /min 18 /min eCW1 ([facility]) Heart rate 88 /min 88 /min eCW1 ([facility]) Body mass index (BMI) [Ratio] 47.40 kg/m2 47.40 kg/m2 W1 ([facility]) Body height 63 [in_us] 63 [in_us] eCW1 ([facility]) Body weight Measured 267.6 [lb_av] 267.6 [lb_av ] eCW1 ([facility]) Diastolic blood pressure 78 mm[Hg] 78 mm[Hg] eCW1 ([facility]) Systolic blood pressure 148 mm[Hg] 148 mm[Hg] e CW1 ([facility]) Body temperature 98.0 [degF] 98.0 [degF] eCW1 ( [facility]) Respiratory rate 18 /min 18 /min eCW1 ([facility]) Heart rate 78 /min 78 /min eCW1 ([facility]) Body mass index (BMI) [Ratio] 46.80 kg/m2 46.80 kg/m2 eCW1 ([facility]) Body height 63 [in_us] 63 [in_us] eCW1 ([facility]) Body weight Measured 264.2 [lb_av] 264.2 [lb_av ] eCW1 ([facility]) Patient Treatment Plan of Care Planned Activity Planned Date Details Description Data Source (s) 0.5 ML dulaglutide 3 MG/ML Auto-Injector [Trulicity] 019 12:00:00 AM EST eCW1 ([facility]) 0.5 ML dulaglutide 3 MG/ML Auto-Injector [Trulicity] 019 12:00:00 AM EST eCW1 ([facility]) 0.5 ML dulaglutide 3 MG/ML Auto-Injector [Trulicity] 019 12:00:00 AM EST eCW1 ([facility]) 0.5 ML dulaglutide 3 MG/ML Auto-Injector [Trulicity] 019 12:00:00 AM EST eCW1 ([facility]) 0.5 ML dulaglutide 1.5 MG/ML Auto-Injector [Trulicity] 02/14/2019 12:00:00 AM EST eCW1 ([facility]) Lisinopril 5 MG Oral Tablet 02/09/2019 12:00:00 AM EST eCW1 ([facility]) Metformin hydrochloride 1000 MG Oral Tablet 02/09/2019 12:00:00 AM EST eCW1 ([facility]) Metformin hydrochloride 1000 MG Oral Tablet 02/09/2019 12:00:00 AM EST eCW1 ([facility]) Lisinopril 5 MG Oral Tablet 02/09/2019 12:00:00 AM EST eCW1 ([facility]) Metformin hydrochloride 1000 MG Oral Tablet 02/09/2019 12:00:00 AM EST eCW1 ([facility]) Lisinopril 5 MG Oral Tablet 02/09/2019 12:00:00 AM EST eCW1 ([facility]) Metformin hydrochloride 1000 MG Oral Tablet 02/09/2019 12:00:00 AM EST eCW1 ([facility]) Lisinopril 5 MG Oral Tablet 02/09/2019 12:00:00 AM EST eCW1 ([facility]) Metformin hydrochloride 1000 MG Oral Tablet 02/09/2019 12:00:00 AM EST eCW1 ([facility]) Lisinopril 5 MG Oral Tablet 02/09/2019 12:00:00 AM EST eCW1 ([facility])
--- OUTSIDE RECORDS SUMMARY | 2020-03-23 06:52 | CCD ---
Author Author [facility] Organization [facility] Address Unknown Phone Unavailable Care Team Providers Care Bar Back Name Role Phone Nigel Kirkpatrick Unavailable PROBLEMS Type Condition ICD9-CM Code [id number] Code Onset Dates Condition S tatus SNOMED Code Notes Problem Vitamin D deficiency E55.9 Active 90613309 Problem Venous (peripheral) insufficiency I87.2 Active 92032412 Problem Morbid (severe) obesity due to excess calories E66 .01 Active 480882172 Problem Bilateral lower extremity edema R60.0 Active 691404977 Problem Body mass index (BMI) of 50-59.9 in adult Z68.43 Active 819728394 Problem Type 2 diabetes mellitus with unspecified complications E11.8 Active 82858391 Problem Type 2 diabetes mellitus wit hout complication, without long-term current use of insulin E11.9 Active 932745895 Problem Obesity, morbid, BMI 50 or higher E66.01 Active 159895255 Problem Depressive disorder, not elsewhere classified F32.9 Active 39627452 Problem Type 2 diabetes mellitus wit hout complication, unspecified whether intermediate frame tender insulin use E11.9 Active 410575228 Problem Essential hypertension I10 Active 65945388 Problem Varicose veins of both legs with edema I83.893 A ctive 03306080 Problem Adjustment disorder with depressed mood F43.21 Active 50809373 Problem Major depressive disorder, recurrent, moderate F33 .1 Active 497744634 Problem Obesity, morbid, BMI 40.0-49.9 E66.01 Active 2 20048722 ALLERGIES No Known Allergies ENCOUNTERS from 1960 to 2019-12-30 Encounter Location Date Provider Diagnosis [address] [address], [facility] IMMUNIZATIONS Vaccine Route Administration Date Status Influenza [...] Education Language: Question Answer Notes Languages spoken: Amharic Taoist: Question Answer Notes Taoist No buddhist beliefs that would impact health care. Sexual [...] MEDICATIONS Medication SIG (Take, Route, Frequency, Duration) Start Date En d Date Status Metformin HCl 1000 MG 1 tablet with a meal Orally bid for 90 day(s) Jan, Active Aspirin 81 MG 1 tablet Orally Once a day Active Trulicity 1.5 MG/0.5ML 1 injection Subcutaneous weekly for 9 0 day(s) Jan, Active Zoloft 100 MG 1 tablet Orally Once a day for 90 day(s) Apr, Active Lisinopril 5 MG 1 tablet Orally Once a day for 90 day(s) Jan, Active PROCEDURES No Information RESULTS No Results REASON FOR VISIT transfer MEDICAL (GENERAL) HISTORY Type Description Date Medical [...] No Information FUNCTIONAL STATUS No Information ASSESSMENTS No Information PLAN OF TREATMENT No Information Insurance Providers Payer Name Payer Address Payer Phone Insured Name Patient Relati onship to Insured Coverage Start Date Coverage End Date [facility] [id number] [phone] [phone] [employer] self 2016
--- OUTSIDE RECORDS SUMMARY | 2020-03-23 06:52 | CCD | Continuity of Care Document ---
Author Author Rahul SYED PA Organization Unknown Address [address], [address] [place] [address] Phone [phone] Care Team Providers Care Catapult And Arresting Gear Officer Name Role Phone Elizabeth Jarvis M.D. AUTM [phone] AUTM Unavailable Problems Active Problems Provider Date Essential hypertension Khanh Estrada, Onset: 2019 Social History Type Date Description Comments Sex Unknown ETOH Use 1 A Month Tobacco Use Start: Unknown Denies Smoking Recreational Drug Use Denies Drug Use Allergies, Adverse Reactions, Alerts Description No Known Drug Allergies Medications Active Medications SIG Qnty Indications Ordering Provide r Date Metformin HCL 1000mg Tablets bid Unknown Lisinopril 5mg Tablets once a day Unknown Sertraline HCL 100mg Tablets 1 qd Unknown Aspirin [address] take 1 tab by mouth daily Unknown Trulicity 1.5mg/0.5ML Solution Pen -Inject Once A Week Unknown Immunizations Description No Information Available Vital Signs Date Vital Result Comment 02/21/2020 11:48am BP Systolic 122 mmHg BP Diastolic 70 mmHg Height 63 inches 5'3" Weight 223.00 lb BMI (Body Mass Index) 39.5 kg/m2 [place] Body Weight 124 lb Weight 101.153 kg BSA (Body Surface Area) 2.03 m2 11/13/2010 10:23am BP Systolic 130 mmHg BP Diastolic 76 mmHg Weight 321.00 lb Weight 145.606 kg Results Description No Information Available Procedures Description No Information Available Medical Devices Description No Information Available Encounters Description No Information Available Assessments Description No Information Available Plan of Treatment Future Appointment(s):* 03/07/2020 10:00 am - YUN Brito at [facility] Functional Status Description No Information Available Mental Status Description No Information Available Referrals Refer to Dr Reason for Referral Status Appt Date Kinza Syed P.A. VENOUS STATSIS BILATERAL LOWER EXTREMIT IES Created 02/21/2020 [address] [place] [address] [place] [address] [phone] Connor Domínguez M.D. colo screening Created 03/07 [address] [facility] [address] [facility] [address] [place] [address] [phone]
--- OUTSIDE RECORDS SUMMARY | 2020-03-23 06:52 | CCD ---
Author Author [facility] Organization [facility] Address Unknown Phone Unavailable Care Team Providers Care Online Content Editor Name Role Phone Elizabeth Jarvis Unavailable PROBLEMS Type Condition ICD9-CM Code [id number] Code Onset Dates Condition S tatus SNOMED Code Notes Problem Vitamin D deficiency E55.9 Active 61409823 Problem Venous (peripheral) insufficiency I87.2 Active 61882535 Problem Morbid (severe) obesity due to excess calories E66 .01 Active 315390020 Problem Bilateral lower extremity edema R60.0 Active 294260444 Problem Body mass index (BMI) of 50-59.9 in adult Z68.43 Active 851173498 Problem Type 2 diabetes mellitus with unspecified complications E11.8 Active 54905618 Problem Type 2 diabetes mellitus wit hout complication, without long-term current use of insulin E11.9 Active 640659766 Problem Obesity, morbid, BMI 50 or higher E66.01 Active 514996056 Problem Depressive disorder, not elsewhere classified F32.9 Active 00938793 Problem Type 2 diabetes mellitus wit hout complication, 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 Sexual Hx: Question Answer Notes Had sex in the last 12 months (vaginal, oral, or anal)? No Have you ever had an STD? No Drug and Alcohol Question Answer Notes Total Score: 0 Interpretation: No problems reported Tobacco Use: Question Answer Notes Are you a: never smoker REASON FOR REFERRAL No Information VITAL SIGNS Weight 221 lbs Nov, Height 63 in Nov, BMI 39.14 kg/m2 Nov, Heart Rate 78 /min Nov, Respiratory Rate 16 /min Nov, Temperature 98.7 degrees Fahrenheit Nov, Oximetry 98% Nov, Blood pressure systolic 112 mm Hg Nov, Blood pressure diastolic 80 mm Hg Nov, MEDICATIONS Medication SIG (Take, Route, Frequency, Duration) [...] Once a day for 90 day(s) Jan, 19 Active PROCEDURES Procedure Date Ordered Result Body Site Immunization: Flublok Quadrivalent (18 years & older) 0.5mL IM (Influenza) 2019-12-21 N/A RESULTS No Results REASON FOR VISIT TRANSFER [facility] he is due for colonoscopy screening MEDICAL (GENERAL) HISTORY Type Description Date Medical [...] STATUS No Information ASSESSMENTS Encounter Date Diagnosis Notes Nov, Type 2 diabetes mellitus wit hout complication, unspecified 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 will re-check at this time. Lipid panel in april 2019 was within normal limits and LDL less than 70. We discussed starting a statin, however patient would like to hold off at this time. He is modifying his diet to eat healthier and has increased his physical activity and has lost about 100 lbs since last seeing a Dr. Will continue current med regimen for DM and continue to monitor. BP today 112/80. Screening for malignant neoplasm of colon Patient believes last colonoscopy was in 2005. Patient states last colonoscopy was normal and he was advised to follow up in 10 years. He would like a referral for a colonoscopy at this time. Denies any change in stool consistency or bowel habits. Encounter for immunization Patient is ag reeable to a flu shot today. Treatment Notes Test Name Order Date HEMOGLOBIN A1c 2019-12-27 CREATININE,RANDOM URINE 2019-12-27 MICROALBUMIN RANDOM 2019-12-27 Next Appt Details 3 Months, prn Reason:DM Follow Up:3 Months, prnDM Insurance Providers Payer Name Payer Address Payer Phone Insured Name Patient Relati onship to Insured Coverage Start Date Coverage End Date [facility] [address] [facility] [phone] [employer] 2016
[2020-03-23] MEDS ORDERED: SIMETHICONE 40MG/0.6ML DROPS 30ML As Ordered ONE (07:01)
[2020-03-23] MEDS ORDERED: LIDOCAINE 2% 100MG/5ML SDV (FOR ANES.) As Ordered ONE (07:08)
[2020-03-23] MEDS ORDERED: propofoL 200 MG/20 ML VIAL As Ordered ONE (07:08)
--- NOTE | 2020-03-23 08:12 | ROOR ---
Patient Name: Rahul Ortiz Procedure Date: 03/23/2020 7:31 AM Date of : 1960 Age: 59 [facility] Gender: Male Note Status: Finalized Procedure: Colonoscopy Indications: Screening for colorectal malignant neoplasm Providers: Connor Domínguez MD Referring MD: Elizabeth Jarvis Md Requesting Provider: Medicines: Monitored Anesthesia Care Complications: No immediate complications. Procedure: Pre-Anesthesia Assessment: - Prior to the procedure, a History and Physical was performed, and patient medications and allergies were reviewed. The patient is competent. The risks and benefits of the procedure and the sedation options and risks were discussed with the patient. All questions were answered and informed consent was obtained. Patient identification and proposed procedure were verified by the physician, the nurse and the anesthesiologist in the procedure room. Mental Status Examination: alert and oriented. Airway Examination: normal oropharyngeal airway and neck mobility. Respiratory Examination: clear to auscultation. CV Examination: normal. Prophylactic Antibiotics: The patient does not require prophylactic antibiotics. Prior Anticoagulants: The patient has taken no previous anticoagulant or antiplatelet agents. ASA Grade Assessment: II - A patient with mild systemic disease. After reviewing the risks and benefits, the patient was deemed in satisfactory condition to undergo the procedure. The anesthesia plan was to use monitored anesthesia care (MAC). Immediately prior to administration of medications, the patient was re-assessed for adequacy to receive sedatives. The heart rate, respiratory rate, oxygen saturations, blood pressure, adequacy of pulmonary ventilation, and response to care were monitored throughout the procedure. The physical status of the patient was re-assessed after the procedure. The Colonoscope was introduced through the anus and advanced to the terminal ileum, with identification of the appendiceal orifice and IC valve. The colonoscopy was performed without difficulty. The patient tolerated the procedure well. The quality of the bowel preparation was good. The terminal ileum, ileocecal valve, appendiceal orifice, and rectum were photographed. Scope insertion time was 2 minutes. Scope withdrawal time was 8 minutes. The total duration of the procedure was 10 minutes. Findings: The perianal and digital rectal examinations were normal. The terminal ileum appeared normal. A 6 mm polyp was found in the recto-sigmoid colon. The polyp was sessile. The polyp was removed with a cold snare. Resection and retrieval were complete. Verification of patient identification for the specimen was done by the physician and nurse using the patient's name, date and medical record number. Multiple small and large-mouthed diverticula were found in the sigmoid colon. There was no evidence of diverticular bleeding. Non-bleeding external and internal hemorrhoids were found during retroflexion. The hemorrhoids were medium-sized. Impression: - The examined portion of the ileum was normal. - One 6 mm polyp at the recto-sigmoid colon, removed with a cold snare. Resected and retrieved. - Moderate diverticulosis in the sigmoid colon. There was no evidence of diverticular bleeding. - Non-bleeding external and internal hemorrhoids. Recommendation: - Patient has a contact number available for emergencies. The signs and symptoms of potential delayed complications were discussed with the patient. Return to normal activities tomorrow. Written discharge instructions were provided to the patient. - High fiber diet. - Continue present medications. - Await pathology results. - Repeat colonoscopy in 5 years for surveillance based on pathology results. - Telephone GI clinic for pathology results in 2 weeks. - Return to primary care physician. Procedure Code(s): --- Professional --- 28846, Colonoscopy, flexible; with removal of tumor(s), polyp(s), or other lesion(s) by snare technique Diagnosis Code(s): --- Professional --- Z12.11, Encounter for screening for malignant neoplasm of colon K64.8, Other hemorrhoids K63.5, Polyp of colon K57.30, Diverticulosis of large intestine without perforation or abscess without bleeding CPT copyright 2019 [employer]. All rights reserved. The codes documented in this report are preliminary and upon medical biller/coder review may be revised to meet current compliance requirements. Connor Domínguez MD Connor Domínguez MD 03/23/2020 8:11:59 AM Electronically signed by Connor Domínguez MD Number of Addenda: 0 Note Initiated On: 03/23/2020 7:31 AM Estimated Blood Loss: Estimated blood loss was minimal.
[2020-03-23 08:20] VITALS: BP 117/76
== END 2020-03-23 09:05 | disposition home or self-care (01) ==
LOC: M OPP 06:48
PROVIDERS: ATTEND Internal Medicine Gastroenterology
DX: Z12.11 Encounter for screening for malignant neoplasm of colon (principal); K63.5 Polyp of colon; K57.30 Diverticulosis of large intestine without perforation or abscess without bleeding; K64.8 Other hemorrhoids; I10 Essential (primary) hypertension; E11.9 Type 2 diabetes mellitus without complications; F32.9 Major depressive disorder, single episode, unspecified; Z79.82 Long term (current) use of aspirin; Z79.84 Long term (current) use of oral hypoglycemic drugs; Z79.899 Other long term (current) drug therapy; Z80.8 Family history of malignant neoplasm of other organs or systems; Z83.3 Family history of diabetes mellitus; Z80.41 Family history of malignant neoplasm of ovary; Z82.49 Family history of ischemic heart disease and other diseases of the circulatory system

== ENCOUNTER → 2020-05-16 | Outpatient (REF) | payer OTHER ==
[~2020-05-16] MED LIST changes: -LISI-542 PO; +LISI-898 PO; -NS 1,000 ML IV ONE
[2020-05-17 11:51] LABS: HEMOGLOBIN A1c 5.2 %
== END ==
LOC: M SFHCLERA 14:39
PROVIDERS: ATTEND Student in an Organized Health Care Education/Training Program
DX: E11.65 Type 2 diabetes mellitus with hyperglycemia (principal)

== ENCOUNTER → 2020-09-18 | Outpatient (REF) | payer OTHER ==
[2020-09-18 16:41] LABS: ALBUMIN 3.5 GM/DL (3.2-5.2); ALT/SGPT 20 U/L (12-78); BILIRUBIN,TOTAL 0.5 MG/DL (0.2-1.0); BLOOD UREA NITROGEN 19 MG/DL (7-18); CALCIUM LEVEL 8.8 MG/DL (8.8-10.2); CARBON DIOXIDE LEVEL 30 MEQ/L (21-32); CHLORIDE LEVEL 107 MEQ/L (98-107); CHOLESTEROL LEVEL 126 MG/DL (<200); CHOLESTEROL RISK RATIO 2.863 (<5); CREATININE FOR GFR 0.58 MG/DL (0.70-1.30); GLOMERULAR FILTRATION RATE > 60.0 (>49); GLUCOSE, FASTING 79 MG/DL (70-100); HDL CHOLESTEROL 44 MG/DL (>40); LDL CHOLESTEROL 68 MG/DL (<100); NON-HDL-C 82 MG/DL; POTASSIUM SERUM 4.6 MEQ/L (3.5-5.1); SODIUM LEVEL 140 MEQ/L (136-145); TOTAL PROTEIN 6.9 GM/DL (6.4-8.2); TRIGLYCERIDES LEVEL 68 MG/DL (<150)
[2020-09-18 18:04] LABS: HEMOGLOBIN A1c 5.2 %
== END ==
LOC: M SFHCLERA 10:45
PROVIDERS: ATTEND Student in an Organized Health Care Education/Training Program
DX: E11.65 Type 2 diabetes mellitus with hyperglycemia (principal)

== ENCOUNTER → 2021-07-05 | Outpatient (REF) | payer OTHER ==
[~2021-07-05] MED LIST changes: -LISI-898 PO; +LISI5TAB11 PO
[2021-07-05 12:03] LABS: HEMOGLOBIN A1c 6.4 %
== END ==
LOC: M SFHCCLAY 09:46
PROVIDERS: ATTEND Student in an Organized Health Care Education/Training Program
DX: E11.9 Type 2 diabetes mellitus without complications (principal)

== ENCOUNTER 2021-09-03 10:15 | Emergency (ER) | payer OTHER ==
[~2021-09-03] VITALS: Ht 160 cm; Wt 120.5 kg
[~2021-09-03 10:15] MED LIST changes: -HYDR12.55 PO
[2021-09-03 10:16] VITALS: BP 136/70
[2021-09-03] MEDS ORDERED: HYDR12.55 PO (14:34)
== END 2021-09-03 14:45 | disposition home or self-care (01) ==
LOC: M ED 10:15
DX: R60.9 Edema, unspecified (principal); I10 Essential (primary) hypertension; E78.5 Hyperlipidemia, unspecified; R29.818 Other symptoms and signs involving the nervous system; Z79.899 Other long term (current) drug therapy; Z79.82 Long term (current) use of aspirin; Z79.84 Long term (current) use of oral hypoglycemic drugs

== ENCOUNTER → 2021-09-03 | Outpatient (POV) | payer OTHER ==
[~2021-09-03] VITALS: Ht 160 cm; Wt 120.4 kg
[~2021-09-03] MED LIST changes: +HYDR12.55 PO
[2021-09-03 09:40] VITALS: BP 174/88
== END ==
LOC: M IRPOV 09:30
PROVIDERS: ATTEND Radiology Diagnostic Radiology
DX: R22.41 Localized swelling, mass and lump, right lower limb (principal); E66.9 Obesity, unspecified; E11.9 Type 2 diabetes mellitus without complications; I10 Essential (primary) hypertension; L53.9 Erythematous condition, unspecified; Z79.82 Long term (current) use of aspirin; Z79.84 Long term (current) use of oral hypoglycemic drugs; Z79.899 Other long term (current) drug therapy

== ENCOUNTER → 2022-01-30 | Outpatient (REF) | payer OTHER ==
[~2022-01-30] MED LIST changes: +HYDR12.55 PO
[2022-01-30 18:56] LABS: CREATININE, URINE 27.6 MG/DL
[2022-01-30 18:57] LABS: MAU/CREAT RATIO 25.3 MCG/MG (0.0-30.0)
[2022-01-30 19:01] LABS: ALBUMIN 3.5 G/DL (3.2-5.2); ALKALINE PHOSPHATASE 49 U/L (46-116); ALT/SGPT 19 U/L (7.0-40); AST/SGOT 10 U/L (<34); BILIRUBIN,TOTAL 0.4 MG/DL (0.3-1.2); BLOOD UREA NITROGEN 24 MG/DL (9-23); CALCIUM LEVEL 8.8 MG/DL (8.3-10.6); CARBON DIOXIDE LEVEL 26 MMOL/L (20-31); CHLORIDE LEVEL 102 MMOL/L (98-107); CHOLESTEROL LEVEL 118 MG/DL (<200); CHOLESTEROL RISK RATIO 2.53 (<5); CREATININE FOR GFR 0.55 MG/DL (0.70-1.30); GLOMERULAR FILTRATION RATE > 60.0 (>49); GLUCOSE, FASTING 221 MG/DL (74-106); HDL CHOLESTEROL 46.5 MG/DL (>40); LDL CHOLESTEROL 58.1 MG/DL (<100); NON-HDL-C 72 MG/DL; POTASSIUM SERUM 4.8 MMOL/L (3.5-5.1); SODIUM LEVEL 136 MMOL/L (136-145); TOTAL PROTEIN 7.1 G/DL (5.7-8.2); TRIGLYCERIDES LEVEL 67 MG/DL (<150)
[2022-01-30 21:37] LABS: HEMOGLOBIN A1c 7.1 % (4.0-6.0)
== END ==
LOC: M SFHCLERA 11:23
PROVIDERS: ATTEND Student in an Organized Health Care Education/Training Program
DX: E11.9 Type 2 diabetes mellitus without complications (principal)

== ENCOUNTER → 2022-04-30 | Outpatient (REF) | payer OTHER ==
[2022-04-30 17:53] LABS: HEMOGLOBIN A1c 6.6 % (4.0-6.0)
== END ==
LOC: M SFHCCLAY 09:44
PROVIDERS: ATTEND Student in an Organized Health Care Education/Training Program
DX: E11.65 Type 2 diabetes mellitus with hyperglycemia (principal)

== ENCOUNTER → 2023-04-29 | Outpatient (REF) | payer OTHER ==
[2023-04-29 18:17] LABS: HEMOGLOBIN A1c 7.2 % (4.0-6.0)
[2023-04-29 18:25] LABS: MALB URINE SIEMENS < 3.0 MG/L; MAU/CREAT RATIO 5.1 MCG/MG (0.0-30.0)
[2023-04-29 18:27] LABS: ALBUMIN 3.6 G/DL (3.2-5.2); ALKALINE PHOSPHATASE 38 U/L (46-116); ALT/SGPT 17 U/L (7.0-40); AST/SGOT 10 U/L (<34); BILIRUBIN,TOTAL 0.7 MG/DL (0.3-1.2); BLOOD UREA NITROGEN 19 MG/DL (9-23); CALCIUM LEVEL 8.2 MG/DL (8.3-10.6); CARBON DIOXIDE LEVEL 30 MMOL/L (20-31); CHLORIDE LEVEL 103 MMOL/L (98-107); CHOLESTEROL LEVEL 131 MG/DL (<200); CHOLESTEROL RISK RATIO 3.08 (<5); CREATININE FOR GFR 0.62 MG/DL (0.70-1.30); GLOMERULAR FILTRATION RATE > 60.0 (>49); GLUCOSE, FASTING 170 MG/DL (74-106); HDL CHOLESTEROL 42.5 MG/DL (>40); LDL CHOLESTEROL 74.3 MG/DL (<100); NON-HDL-C 88.5 MG/DL; POTASSIUM SERUM 4.8 MMOL/L (3.5-5.1); SODIUM LEVEL 134 MMOL/L (136-145); TOTAL PROTEIN 6.8 G/DL (5.7-8.2); TRIGLYCERIDES LEVEL 71 MG/DL (<150)
== END ==
LOC: M SFHCLERA 09:28
PROVIDERS: ATTEND Family Medicine
DX: E11.8 Type 2 diabetes mellitus with unspecified complications (principal)

== ENCOUNTER → 2023-05-12 | Outpatient (CLI) | payer OTHER | LOC: M SLEEP HO 11:18 | PROVIDERS: ATTEND Family Medicine | DX: R06.81 Apnea, not elsewhere classified (principal); R06.83 Snoring ==

== ENCOUNTER → 2023-09-09 | Outpatient (CLI) | payer OTHER | LOC: M RAD 09:30 | PROVIDERS: ATTEND Physician Assistant | DX: L03.115 Cellulitis of right lower limb (principal); R60.0 Localized edema ==

== ENCOUNTER → 2023-12-15 | Outpatient (REF) | payer OTHER | LOC: M SFHCCLAY 14:36 | PROVIDERS: ATTEND Nurse Practitioner Family | DX: E11.65 Type 2 diabetes mellitus with hyperglycemia (principal); I10 Essential (primary) hypertension; G47.33 Obstructive sleep apnea (adult) (pediatric); F33.1 Major depressive disorder, recurrent, moderate; Z53.9 Procedure and treatment not carried out, unspecified reason ==

== ENCOUNTER → 2023-12-25 | Outpatient (REF) | payer OTHER ==
[2023-12-25 18:13] LABS: BASO # 0.1 10^3/uL (0.0-0.2); BASO % 0.5 % (0.0-1.0); EOS # 0.1 10^3/uL (0.0-0.5); EOS % 0.6 % (0.0-3.0); HEMATOCRIT 40.3 % (42.0-52.0); HEMOGLOBIN 12.8 g/dl (13.5-17.5); LYMPH # 1.9 10^3/uL (1.5-5.0); LYMPH % 15.3 % (24.0-44.0); MEAN CORPUSCULAR HEMOGLOBIN 29.4 pg (27.0-33.0); MEAN CORPUSCULAR HGB CONC 31.8 g/dl (32.0-36.5); MEAN CORPUSCULAR VOLUME 92.6 fl (80.0-96.0); MONO # 1.1 10^3/uL (0.0-0.8); NEUTROPHILS # 8.9 10^3/uL (1.5-8.5); NEUTROPHILS % 69.7 % (36.0-66.0); PLATELET COUNT, AUTOMATED 358 10^3/uL (150-450); RED BLOOD COUNT 4.35 10^6/uL (4.30-6.10); WHITE BLOOD COUNT 12.7 10^3/uL (4.0-10.0)
[2023-12-25 18:27] LABS: ALBUMIN 2.9 G/DL (3.2-5.2); ALKALINE PHOSPHATASE 33 U/L (40-129); ALT/SGPT 33 U/L (7.0-40); AST/SGOT 22 U/L (<34); BILIRUBIN,TOTAL 0.6 MG/DL (0.3-1.2); BLOOD UREA NITROGEN 14 MG/DL (9-23); CALCIUM LEVEL 9.5 MG/DL (8.3-10.6); CARBON DIOXIDE LEVEL 31 MMOL/L (20-31); CHLORIDE LEVEL 102 MMOL/L (98-107); CREATININE FOR GFR 0.58 MG/DL (0.70-1.30); GLOMERULAR FILTRATION RATE > 60.0 (>49); GLUCOSE, FASTING 141 MG/DL (74-106); POTASSIUM SERUM 4.1 MMOL/L (3.5-5.1); SODIUM LEVEL 138 MMOL/L (136-145); TOTAL PROTEIN 7.3 G/DL (5.7-8.2)
[2023-12-25 18:29] LABS: FREE T4 1.24 NG/DL (0.89-1.76)
[2023-12-25 18:48] LABS: THYROID STIMULATING HORMONE 3.743 uIU/ML (0.55-4.78)
== END ==
LOC: M SFHCCLAY 14:33
PROVIDERS: ATTEND Nurse Practitioner Family
DX: I48.3 Typical atrial flutter (principal); N30.00 Acute cystitis without hematuria; A04.4 Other intestinal Escherichia coli infections

== ENCOUNTER → 2024-01-01 | Outpatient (CLI) | payer OTHER | LOC: M PLAIMG 13:19 | PROVIDERS: ATTEND Nurse Practitioner Family | DX: R25.1 Tremor, unspecified (principal) ==

== ENCOUNTER → 2024-01-13 | Outpatient (REF) | payer OTHER ==
[2024-01-13 17:05] LABS: BASO # 0.1 10^3/uL (0.0-0.2); BASO % 0.7 % (0.0-1.0); EOS # 0.2 10^3/uL (0.0-0.5); EOS % 2.5 % (0.0-3.0); HEMATOCRIT 37.5 % (42.0-52.0); HEMOGLOBIN 12.2 g/dl (13.5-17.5); LYMPH # 2.3 10^3/uL (1.5-5.0); LYMPH % 25.1 % (24.0-44.0); MEAN CORPUSCULAR HEMOGLOBIN 29.4 pg (27.0-33.0); MEAN CORPUSCULAR HGB CONC 32.5 g/dl (32.0-36.5); MEAN CORPUSCULAR VOLUME 90.4 fl (80.0-96.0); MONO # 0.7 10^3/uL (0.0-0.8); MONO % 7.4 % (2.0-8.0); NEUTROPHILS # 5.7 10^3/uL (1.5-8.5); NEUTROPHILS % 63.7 % (36.0-66.0); PLATELET COUNT, AUTOMATED 238 10^3/uL (150-450); RED BLOOD COUNT 4.15 10^6/uL (4.30-6.10)
[2024-01-13 17:32] LABS: BLOOD UREA NITROGEN 17 MG/DL (9-23); CALCIUM LEVEL 9.4 MG/DL (8.3-10.6); CARBON DIOXIDE LEVEL 26 MMOL/L (20-31); CHLORIDE LEVEL 105 MMOL/L (98-107); CREATININE FOR GFR 0.58 MG/DL (0.70-1.30); GLOMERULAR FILTRATION RATE > 60.0 (>49); GLUCOSE, FASTING 91 MG/DL (74-106); SODIUM LEVEL 138 MMOL/L (136-145)
== END ==
LOC: M SFHCCLAY 13:48
PROVIDERS: ATTEND Nurse Practitioner Family
DX: I48.3 Typical atrial flutter (principal); I89.0 Lymphedema, not elsewhere classified

== ENCOUNTER → 2024-01-20 | Outpatient (CLI) | payer OTHER | LOC: M CARPUL 14:21 | PROVIDERS: ATTEND Nurse Practitioner Family | DX: I48.3 Typical atrial flutter (principal) ==

== ENCOUNTER → 2024-04-13 | Outpatient (REF) | payer OTHER ==
[2024-04-13 18:03] LABS: ALBUMIN 3.4 G/DL (3.2-5.2); ALKALINE PHOSPHATASE 28 U/L (40-129); ALT/SGPT 17 U/L (7.0-40); AST/SGOT 12 U/L (<34); BILIRUBIN,TOTAL 0.5 MG/DL (0.3-1.2); BLOOD UREA NITROGEN 16 MG/DL (9-23); CALCIUM LEVEL 9.1 MG/DL (8.3-10.6); CARBON DIOXIDE LEVEL 30 MMOL/L (20-31); CHLORIDE LEVEL 103 MMOL/L (98-107); CHOLESTEROL LEVEL 140 MG/DL (<200); CHOLESTEROL RISK RATIO 3.16 (<5); CREATININE FOR GFR 0.58 MG/DL (0.70-1.30); GLOMERULAR FILTRATION RATE > 60.0 (>49); GLUCOSE, FASTING 93 MG/DL (74-106); HDL CHOLESTEROL 44.3 MG/DL (>40); LDL CHOLESTEROL 77.7 MG/DL (<100); NON-HDL-C 95.7 MG/DL; POTASSIUM SERUM 4.3 MMOL/L (3.5-5.1); SODIUM LEVEL 140 MMOL/L (136-145); TOTAL PROTEIN 7.4 G/DL (5.7-8.2); TRIGLYCERIDES LEVEL 90 MG/DL (<150)
[2024-04-13 18:08] LABS: FREE T4 1.19 NG/DL (0.89-1.76); THYROID STIMULATING HORMONE 4.639 uIU/ML (0.55-4.78)
[2024-04-13 18:09] LABS: HEMOGLOBIN A1c 6.5 % (4.0-6.0)
== END ==
LOC: M SFHCCLAY 14:21
PROVIDERS: ATTEND Nurse Practitioner Family
DX: I48.3 Typical atrial flutter (principal); I10 Essential (primary) hypertension; E11.65 Type 2 diabetes mellitus with hyperglycemia; G47.33 Obstructive sleep apnea (adult) (pediatric); F33.1 Major depressive disorder, recurrent, moderate; R25.1 Tremor, unspecified; H91.93 Unspecified hearing loss, bilateral; R35.0 Frequency of micturition

== ENCOUNTER 2024-09-28 14:07 | Emergency (ER) | payer MEDICARE ==
[~2024-09-28] VITALS: Ht 160 cm; Wt 130.5 kg
[~2024-09-28 14:07] MED LIST changes: -PROZ20CA11 PO; +PROZ20CA12 PO
[2024-09-28] MEDS ORDERED: TORS10TA3 (14:21)
[2024-09-28] MEDS ORDERED: ELIQ5TAB (14:22)
[2024-09-28] MEDS: LIDOCAINE W/EPINEPHrine 1% 20 ML VIAL SC ONE (16:25)
[2024-09-28] MEDS: TETANUS/DIPHTH/ACEL. PERTUSSIS 0.5 ML SYR IM.IMMUN ONE (16:36)
[2024-09-28 17:15] VITALS: BP 159/70; TEMP 96.4; O2SAT 96
== END 2024-09-28 17:36 | disposition home or self-care (01) ==
LOC: M ED 14:07 → EDBD 14:07 → M ED 17:36
DX: I83.891 Varicose veins of right lower extremity with other complications (principal); I48.91 Unspecified atrial fibrillation; E11.9 Type 2 diabetes mellitus without complications; Z79.4 Long term (current) use of insulin; Z79.82 Long term (current) use of aspirin; Z79.899 Other long term (current) drug therapy

== ENCOUNTER → 2024-12-09 | Outpatient (REF) | payer MEDICARE ==
[~2024-12-09] MED LIST changes: +ELIQ5TAB; +TORS10TA3
[2024-12-09 17:33] LABS: ALT/SGPT 19 U/L (7.0-40); AST/SGOT 11 U/L (<34); CALCIUM LEVEL 9.2 MG/DL (8.3-10.6); CARBON DIOXIDE LEVEL 29 MMOL/L (20-31); CHLORIDE LEVEL 99 MMOL/L (98-107); CHOLESTEROL LEVEL 171 MG/DL (<200); CHOLESTEROL RISK RATIO 4.13 (<5); CREATININE FOR GFR 0.61 MG/DL (0.70-1.30); GLOMERULAR FILTRATION RATE > 90.0 (>49); LDL CHOLESTEROL 94.2 MG/DL (<100); NON-HDL-C 129.6 MG/DL; POTASSIUM SERUM 4.4 MMOL/L (3.5-5.1); SODIUM LEVEL 138 MMOL/L (136-145); TRIGLYCERIDES LEVEL 177 MG/DL (<150)
[2024-12-09 17:43] LABS: ESTIMATED AVERAGE GLUCOSE 309.0 MG/DL (60-110)
== END ==
LOC: M SFHCCLAY 10:01
PROVIDERS: ATTEND Nurse Practitioner Family
DX: I48.3 Typical atrial flutter (principal); I10 Essential (primary) hypertension; E11.65 Type 2 diabetes mellitus with hyperglycemia; G47.33 Obstructive sleep apnea (adult) (pediatric); F33.1 Major depressive disorder, recurrent, moderate; R25.1 Tremor, unspecified; H91.93 Unspecified hearing loss, bilateral

== ENCOUNTER → 2024-12-28 | Outpatient (REF) | payer MEDICARE ==
[~2024-12-28] MED LIST changes: +DULA3PEN; -ELIQ5TAB; +ELIQ5TAB PO; +FARX1TAB3 PO; +LANTINJ4 SC; +LISI10TA22 PO; +MULTTAB61 PO; +SERT50TA29 PO; +TIRZ2.5P SQ; +TORS10TA3 PO
[2024-12-28 18:14] LABS: ALT/SGPT 14 U/L (7.0-40); AST/SGOT 12 U/L (<34); CALCIUM LEVEL 8.5 MG/DL (8.3-10.6); CARBON DIOXIDE LEVEL 29 MMOL/L (20-31); CHLORIDE LEVEL 101 MMOL/L (98-107); CREATININE FOR GFR 0.51 MG/DL (0.70-1.30); GLOMERULAR FILTRATION RATE > 90.0 (>49); POTASSIUM SERUM 4.1 MMOL/L (3.5-5.1); SODIUM LEVEL 137 MMOL/L (136-145)
[2024-12-28 18:15] LABS: BASO # 0.1 10^3/uL (0.0-0.2); BASO % 0.8 % (0.0-1.0); EOS # 0.3 10^3/uL (0.0-0.5); EOS % 3.6 % (0.0-3.0); LYMPH # 1.6 10^3/uL (1.5-5.0); LYMPH % 20.7 % (24.0-44.0); MONO # 0.7 10^3/uL (0.0-0.8); MONO % 8.9 % (2.0-8.0); NEUTROPHILS # 5.1 10^3/uL (1.5-8.5); NEUTROPHILS % 65.2 % (36.0-66.0); PLATELET COUNT, AUTOMATED 192 10^3/uL (150-450)
== END ==
LOC: M SFHCCLAY 10:40
PROVIDERS: ATTEND Nurse Practitioner Family
DX: Z01.818 Encounter for other preprocedural examination (principal)

== ENCOUNTER 2025-01-16 05:58 | Day surgery (SDC) | payer MEDICARE ==
[~2025-01-16] VITALS: Ht 160 cm; Wt 120.2 kg
[~2025-01-16 05:58] MED LIST changes: -PROZ20CA12 PO; +PROZ20CA25 PO
[2025-01-16] MEDS ORDERED: LR 1,000 ML IV SCH (07:00)
[2025-01-16] MEDS: TETRACAINE 0.5% OPHTH SOLN 4ML OD SCH (07:05)
[2025-01-16] MEDS: CYCLOPENTOLATE 1% OPHTH SOLN 2 ML BTL OD SCH (07:05)
[2025-01-16] MEDS ORDERED: GLUCOSE 4 GM CHEW PO PRN (07:05)
[2025-01-16] MEDS: FLURBIPROFEN 0.03% OPHTH SOLN 2.5 ML OD SCH (07:05)
[2025-01-16] MEDS ORDERED: GLUCAGON INJ 1 MG VIAL SC PRN (07:05)
[2025-01-16] MEDS ORDERED: DEXTROSE 50% 50 ML SYRINGE IV PRN (07:05)
[2025-01-16] MEDS: PHENYLEPHRINE 2.5% OPHTH SOL 2ML OD SCH (07:05)
[2025-01-16] MEDS ORDERED: MIDAZOLAM INJ 2 MG/2 ML VIAL As Ordered ONE (07:07)
[2025-01-16] MEDS: INSULIN LISPRO (NovoLOG) PER UNIT SC PRN ×2 (07:22→09:21)
[2025-01-16] MEDS: CEFUROXIME 1 MG/0.1 ML INTRACAMERAL INJ As Ordered ONE (08:21)
[2025-01-16] MEDS: LIDOCAINE 1% SDV 5 ML VIAL As Ordered ONE (08:21)
[2025-01-16 08:38] VITALS: BP 112/73; TEMP 97.1; O2SAT 98
== END 2025-01-16 09:25 | disposition home or self-care (01) ==
LOC: M SDC 05:58
PROVIDERS: ATTEND Ophthalmology
DX: E11.36 Type 2 diabetes mellitus with diabetic cataract (principal); H25.11 Age-related nuclear cataract, right eye; I10 Essential (primary) hypertension; F41.9 Anxiety disorder, unspecified; F32.A Depression, unspecified; Z79.899 Other long term (current) drug therapy; Z79.82 Long term (current) use of aspirin; Z79.01 Long term (current) use of anticoagulants; Z79.85 Long-term (current) use of injectable non-insulin antidiabetic drugs; E66.01 Morbid (severe) obesity due to excess calories; Z68.42 Body mass index [BMI] 45.0-49.9, adult
CPT/HCPCS: 66984; J0697; J1815; J2250; J3010; V2632

== ENCOUNTER 2025-02-13 07:29 | Day surgery (SDC) | payer MEDICARE ==
[~2025-02-13] VITALS: Ht 160 cm; Wt 117.0 kg
[~2025-02-13 07:29] MED LIST changes: +LR 1,000 ML IV SCH; +MIDAZOLAM INJ 2 MG/2 ML VIAL As Ordered ONE
[2025-02-13] MEDS: FLURBIPROFEN 0.03% OPHTH SOLN 2.5 ML OS SCH (07:57)
[2025-02-13] MEDS: PHENYLEPHRINE 2.5% OPHTH SOL 2ML OS SCH (07:57)
[2025-02-13] MEDS: TETRACAINE 0.5% OPHTH SOLN 4ML OS SCH (07:57)
[2025-02-13] MEDS: CYCLOPENTOLATE 1% OPHTH SOLN 2 ML BTL OS SCH (07:57)
[2025-02-13] MEDS ORDERED: GLUCOSE 4 GM CHEW PO PRN (08:05)
[2025-02-13] MEDS ORDERED: DEXTROSE 50% 50 ML SYRINGE IV PRN (08:05)
[2025-02-13] MEDS ORDERED: GLUCAGON INJ 1 MG VIAL SC PRN (08:05)
[2025-02-13] MEDS: INSULIN LISPRO (NovoLOG) PER UNIT SC PRN (08:21)
[2025-02-13] MEDS: LIDOCAINE 1% SDV 5 ML VIAL As Ordered ONE (09:10)
[2025-02-13] MEDS: CEFUROXIME 1 MG/0.1 ML INTRACAMERAL INJ As Ordered ONE (09:10)
[2025-02-13 09:25] VITALS: BP 150/66; TEMP 97.2; O2SAT 96
== END 2025-02-13 09:43 | disposition home or self-care (01) ==
LOC: M SDC 07:29
PROVIDERS: ATTEND Ophthalmology
DX: E11.36 Type 2 diabetes mellitus with diabetic cataract (principal); H25.12 Age-related nuclear cataract, left eye; I10 Essential (primary) hypertension; I48.3 Typical atrial flutter; G47.33 Obstructive sleep apnea (adult) (pediatric); F33.1 Major depressive disorder, recurrent, moderate; R25.1 Tremor, unspecified; F41.9 Anxiety disorder, unspecified; Z79.899 Other long term (current) drug therapy; Z79.82 Long term (current) use of aspirin; Z79.01 Long term (current) use of anticoagulants; Z79.84 Long term (current) use of oral hypoglycemic drugs; Z98.41 Cataract extraction status, right eye
CPT/HCPCS: 66984; J0697; J1815; J2250; J3010; V2632